=== PATIENT | female | born 1985 | race Two or more races ===

== ENCOUNTER 2021-04-13 18:31 | Emergency (ER) | payer BC ==
[~2021-04-13] VITALS: Ht 160 cm; Wt 77.1 kg
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
[2021-04-13] MEDS ORDERED: ACETAMINOPHEN 325 MG TABLET PO ONE (19:00)
--- NOTE | 2021-04-13 19:05 | NUR ---
REC'D REPORT FROM COREEN NYE FOR [facility]
--- NOTE | 2021-04-13 19:05 | NUR ---
US AT BEDSIDE
--- NOTE | 2021-04-13 19:14 | NUR ---
OFFERED TYLENOL, PATIENT STS MAYBE LATER. SHE WANTS TO EAT FIRST. US BEING DONE AT THIS TIME.
--- NOTE | 2021-04-13 19:50 | NUR ---
Patient discharged to home in stable condition. Written and verbal after care instructions given. Patient verbalizes understanding of instruction. Pt ambulatory with a steady gait
[2021-04-13] MEDS ORDERED: ACETAMINOPHEN 325 MG TABLET ONE (19:53)
[2021-04-13 19:57] VITALS: BP 110/70
== END 2021-04-13 19:50 | disposition home or self-care (01) ==
LOC: ER 18:37
DX: O9A.212 Injury, poisoning and certain other consequences of external causes complicating pregnancy, second trimester (principal); M54.5 Low back pain; R10.2 Pelvic and perineal pain; Z3A.24 24 weeks gestation of pregnancy; V49.49XA Driver injured in collision with other motor vehicles in traffic accident, initial encounter; Y93.89 Activity, other specified; Y92.413 State road as the place of occurrence of the external cause; Y99.8 Other external cause status
CPT/HCPCS: 76805-TC